=== PATIENT | female | born 1990 | race American Indian/Alaskan Native ===

== ENCOUNTER 2017-09-09 08:30 | Emergency (ER) | payer SELFPAY ==
[2017-09-09] MEDS ORDERED: NORCO 7.5/325 PO ONE (12:08)
--- NOTE | 2017-09-09 12:08 | Emergency Department Report ---
Blank Doc - Documentation Documentation: Patient is a 26-year-old [place] female who is presenting with new onset headaches for the past several days. Patient states that headache is right frontal and she does have tenderness however she denies any congestion and cough cold congestion or flulike symptoms. Patient states that the pain radiates to the right ear and she even has some discomfort in her right leg this morning says it feels as though it's going to sleep. Patient will be given Vicodin for pain as well as a head CT to rule out any serious abnormalities
--- NOTE | 2017-09-09 12:16 | Emergency Department Report ---
ED Headache HPI - General Chief Complaint: Headache Stated Complaint: HEADACHE, PAIN IN RIGHT LEG Time Seen by Provider: 09/09/17 12:00 - History of Present Illness Initial Comments: Patient is a 26-year-old Citizen Of [place] female who is presenting with new onset headaches for the past several days. Patient states that headache is right frontal and she does have tenderness however she denies any congestion and cough cold congestion or flulike symptoms. Patient states that the pain radiates to the right ear and she even has some discomfort in her right leg this morning says it feels as though it's going to sleep. Denies any nausea or vomiting. Denies any dizziness or blurred vision. Denies any fever or chills. Pain to right frontal area is 6 out of 10 and achy. She says she took some [id number] medication but it didn't help her pain. Denies any shortness of breath or chest pain. Timing/Duration: waxing and waning, other (2 days) Quality: moderate, achy Head Injury Location: frontal Recent Head Trauma: occasional headaches Modifying Factors: improves with: rest Associated Symptoms: other (arthralgia and earache). denies: confusion, fatigue , facial pain, fever/chills, loss of consciousness, nausea/vomiting, nasal congestion, nasal drainage, numbness in legs/feet, rash, seizures, sinus infection, stiff neck, vision changes, weakness Allergies/Adverse Reactions: Allergies No Known Allergies Allergy (Unverified 09/09/17 09:36) Home Medications: Ambulatory Orders Cetirizine HCl [ZyrTEC] 10 mg PO QAM 14 Days #14 capsule 09/09/17 Fluticasone [Flonase] 1 spray NS QDAY 14 Days #1 bottle 09/09/17 Promethazine [Phenergan TAB] 25 mg PO Q6HR PRN #12 tab 09/09/17 traMADol [Ultram] 50 mg PO Q6HR PRN #12 tablet 09/09/17 ED Review of Systems ROS: Stated complaint: HEADACHE, PAIN IN RIGHT LEG Other details as noted in HPI Comment: All other systems reviewed and negative Constitutional: no symptoms reported Eyes: denies: eye pain, eye discharge ENT: ear pain. denies: throat pain, hearing loss, epistaxis, congestion Respiratory: no symptoms reported Cardiovascular: denies: chest pain, palpitations, dyspnea on exertion, edema, syncope, paroxysmal nocturnal dyspnea Gastrointestinal: denies: abdominal pain, nausea, vomiting, diarrhea, constipation, hematemesis, melena, hematochezia Genitourinary: denies: urgency, dysuria, frequency, hematuria, discharge Musculoskeletal: arthralgia. denies: back pain, joint swelling, myalgia Skin: denies: rash Neurological: headache. denies: weakness, numbness, paresthesias, confusion, abnormal gait, vertigo ED Past Medical Hx - Past Medical History Previous Medical History?: Yes Hx Headaches / Migraines: Yes - Surgical History Past Surgical History?: Yes Additional Surgical History: right wrist - Family History Family history: hypertension - Social History Smoking Status: Current Every Day Smoker Substance Use Type: Alcohol - Medications Home Medications: Home Medications Medication Instructions Recorded Confirmed Last Taken Type Cetirizine HCl [ZyrTEC] 10 mg PO QAM 14 Days #14 capsule 09/09/17 Unknown Rx Fluticasone [Flonase] 1 spray NS QDAY 14 Days #1 bottle 09/09/17 Unknown Rx Promethazine [Phenergan TAB] 25 mg PO Q6HR PRN #12 tab 09/09/17 Unknown Rx traMADol [Ultram] 50 mg PO Q6HR PRN #12 tablet 09/09/17 Unknown Rx ED Physical Exam - General Limitations: No Limitations General appearance: alert, in no apparent distress - Head Head exam: Present: atraumatic, normocephalic, normal inspection, other (normal exam) - Eye Eye exam: Present: normal appearance, PERRL, EOMI. Absent: scleral icterus, conjunctival injection, nystagmus, periorbital swelling, periorbital tenderness Pupils: Present: normal accommodation - ENT ENT exam: Present: normal exam, normal orophraynx, mucous membranes moist, normal external ear exam, other (bilateral nasal mucosa mild congestion with erythema. No frontal or maxillary sinus tenderness.). Absent: TM's normal bilaterally (bilateral TM with minimal congestion and no erythema) - Neck Neck exam: Present: normal inspection, full ROM, other (no C-spine tenderness). Absent: tenderness, meningismus, lymphadenopathy, thyromegaly - Respiratory Respiratory exam: Present: normal lung sounds bilaterally. Absent: respiratory distress, chest wall tenderness, accessory muscle use - Cardiovascular Cardiovascular Exam: Present: regular rate, normal rhythm, normal heart sounds. Absent: systolic murmur, diastolic murmur - GI/Abdominal GI/Abdominal exam: Present: soft, normal bowel sounds. Absent: distended, tenderness, guarding, rebound, rigid, organomegaly, mass, bruit, pulsatile mass , hernia - Extremities Exam Extremities exam: Present: normal inspection, full ROM, normal capillary refill , other (no no clubbing, cyanosis or edema. +2 pulses all extremities and no neurovascular compromise). Absent: tenderness, pedal edema, joint swelling, calf tenderness - Back Exam Back exam: Present: normal inspection, full ROM, other (ambulates without difficulties). Absent: tenderness, CVA tenderness (R), CVA tenderness (L), muscle spasm, paraspinal tenderness, vertebral tenderness, rash noted - Neurological Exam Neurological exam: Present: alert, oriented X3, normal gait, reflexes normal. Absent: motor sensory deficit - Expanded Neurological Exam Expanded Neurological exam: Absent: innattentive, memory loss-remote event, memory loss- recent event, ataxia, receptive aphasia, expressive aphasia, total aphasia, tremor, protecting the airway Patient oriented to: Present: person, place, time Speech: Present: fluid speech Cranial nerves: EOM's Intact: Normal, Gag Reflex: Normal, Tongue Deviation: Normal, Nystagmus: Normal, Facial Sensation: Normal Cerebellar function: Romberg: Normal Upper motor neuron: Pronator Drift: Normal, Sensory Extinction: Normal Sensory exam: Upper Extremity Light Touch: Normal, Upper Extremity Temperature: Normal, UE 2 Point Discrimination: Normal, Lower Extremity Light Touch: Normal, Lower Extremity Temperature: Normal, LE 2 Point Discrimination: Normal DTR: bicep (R): 2+, bicep (L): 2+, tricep (R): 2+, tricep (L): 2+, knee (R): 2+ , knee (L): 2+, ankle (R): 2+, ankle (L): 2+ Best Eye Response ([place]): (4) open spontaneously Best Motor Response ([place]): (6) obeys commands Best Verbal Response ([place]): (5) oriented Kalin Total: 15 - Psychiatric Psychiatric exam: Present: normal affect, normal mood - Skin Skin exam: Present: warm, dry, intact, normal color. Absent: rash ED Course Vital Signs 09/09/17 09:36 Temperature 97.9 F Pulse Rate 76 Respiratory 18 Rate Blood Pressure 113/79 O2 Sat by Pulse 100 Oximetry - Reevaluation(s) Reevaluation #1: 09/09/17 14:38 Patient received Dawn 5/325 mg one by mouth once at emergency room which relieved her headache. She's had no nausea and was able to tolerate oral liquids without any difficulties. ED Medical Decision Making - Radiology Data Radiology results: report reviewed CT scan of the head revealed no acute intracranial or extracranial processes - Medical Decision Making ED course: Vision here for right frontal headache with an ongoing for 2 days. She is found to have nasal mucosa erythema with congestion and mild congestion to both ears without any signs of infection. Patient neurologically is intact. I discussed the patient that her CT scan of the head was normal. She was given Dawn 5/325 1 tablet in the emergency room which relieved her pain. Patient able to tolerate oral liquids in emergency room and discharged home to follow up with her primary care physician and 2 days. She does not have a primary care physician so I instructed her to follow-up with outside Medical Center. She was given a prescription for Ultram, Zyrtec and Flonase and Phenergan. Critical care attestation.: If time is entered above; I have spent that time in minutes in the direct care of this critically ill patient, excluding procedure time. ED Disposition Clinical Impression: Upper respiratory infection Qualifiers: URI type: unspecified URI Qualified Code(s): J06.9 - Acute upper respiratory infection, unspecified Headache Qualifiers: Headache type: unspecified Headache chronicity pattern: unspecified pattern Intractability: not intractable Qualified Code(s): R51 - Headache Disposition: DC-01 TO HOME OR SELFCARE Is pt being admited?: No Does the pt Need Aspirin: No Condition: Stable Instructions: Acute Headache (ED), Upper Respiratory Infection (ED) Additional Instructions: Please increase her fluid intake Follow-up with Medical Center in 2 days for primary care follow-up Take medication as prescribed. Do not drive or operate heavy machinery while taken Ultram and/or Phenergan as his medication causes drowsiness Prescriptions: Cetirizine HCl [ZyrTEC] 10 mg PO QAM 14 Days #14 capsule Fluticasone [Flonase] 1 spray NS QDAY 14 Days #1 bottle Promethazine [Phenergan TAB] 25 mg PO Q6HR PRN #12 tab PRN Reason: Nausea traMADol [Ultram] 50 mg PO Q6HR PRN #12 tablet PRN Reason: Pain Referrals: [facility] [Outside] - 09/11/17 Forms: Work/School Release Form(ED)
--- NOTE | 2017-09-09 13:01 | Cat Scan Report ---
CT HEAD WITHOUT CONTRAST INDICATION: New onset headache. COMPARISON: None similar at this institution. FINDINGS: Noncontrast head CT limited due to motion, though suggests normal ventricles and sulci without acute or recent infarct, hemorrhage, mass effect or midline shift. No abnormal extra-axial fluid collections. Posterior fossa structures and basilar cisterns within normal limits. Normal imaged eye globes. Clear paranasal sinuses and mastoid air cells. Approximately 3 x 1.3 cm nasopharyngeal soft tissues may be directly visualized. Intact calvarium. Normal overlying scalp soft tissues. CONCLUSION: No acute intracranial CT abnormality, as described. Thank you for the opportunity to participate in this patient's care.
[2017-09-09 15:00] VITALS: BP 118/70
== END 2017-09-09 14:58 | disposition home or self-care (01) ==
LOC: ED 08:30
DX: J06.9 Acute upper respiratory infection, unspecified (principal); G43.909 Migraine, unspecified, not intractable, without status migrainosus; F17.200 Nicotine dependence, unspecified, uncomplicated
CPT/HCPCS: 70450; 99283